=== PATIENT | male | born 1945 | race Caucasian/White ===

== ENCOUNTER → 2021-03-26 | Day surgery (SDC) | payer OTHER ==
[~2021-03-26] VITALS: Ht 177.8 cm; Wt 70.3 kg
[~2021-03-26] MED LIST: ASA81BEC PO; ATORVASTATIN CA80 MG PO; KAPSPARGO SPRIN25 MG PO; LEVO-T50 MCG PO; OXYCODONE-APAP1 EAC4 PO
[2021-03-26 08:30] VITALS: BP 109/77
--- NOTE | 2021-03-29 07:19 | O ---
[facility] [place] [address] OPERATIVE REPORT Name: BERTHA MAURO Room #: REG [facility].#: [id number] Admission: 03/26/21 Attend Phys: Roman Rodriguez MD Discharge: Date of : 49 Report #: [id number] THIS REPORT FOR: cc: FAM - Family physician unknown FAM - Family physician unknown Roman Rodriguez MD ~ DATE OF SERVICE: 03/26/2021 PREOPERATIVE DIAGNOSES: 1. Basal cell carcinoma, right medial cheek. 2. Mohs defect, right medial cheek, 4 x 4 cm. POSTOPERATIVE DIAGNOSES: 1. Basal cell carcinoma, right medial cheek. 2. Mohs defect, right medial cheek, 4 x 4 cm. PROCEDURES PERFORMED: 1. Adjacent tissue transfer, right cheek, 30-60 square cm, code 03887. 2. Full thickness skin graft to cheek, code 59127. 3. Scar release of the face, code 83133. PRIMARY SURGEON: Roman Rodriguez MD STEAM SHOVEL ENGINEER: None. ANESTHESIA: General. DRAINS: None. ESTIMATED BLOOD LOSS: Approximately 20 mL. COMPLICATIONS: None. INDICATIONS FOR PROCEDURE: The patient is a 75-year-old male with a history of cutaneous malignancy, who recently underwent Mohs micrographic excision of a right medial cheek lesion positive for basal cell carcinoma. This was cleared after several layers and this resulted in a large complex defect. Therefore, he was referred to me. In consultation with the patient, it was noted that he had a very large medial cheek defect and this would require general anesthesia at a hospital given his multiple other medical comorbidities. He was consented about benefits and risks of the procedure and we elected to proceed. DESCRIPTION OF PROCEDURE: The patient was identified in the preoperative area before being transported to the operating room and placed supine on the operating table. At this point, general endotracheal anesthesia was induced and a timeout was called to ensure patient identity and procedure to be performed. [address] [address] OPERATIVE REPORT Name: BERTHA MAURO Room #: REG [facility]..#: [id number] Admission: 03/26/21 Attend Phys: Roman Rodriguez MD Discharge: Date of : 49 Report #: [id number] Once all were in agreement, the lesion was injected locally with 1% percent lidocaine with 1:100,000 epinephrine solution including a very large amount of the cheek and neck inferior to the lesion. Once this was performed, the patient was prepped and draped in the normal sterile fashion. Starting first, the wound was sharply debrided of all scar tissue and granulation tissue that was in the way using a #15 blade and iris scissors. Once all wound edges were freshened and scar contracture was released, the wound was undermined widely medially, laterally and slightly superiorly leaving the inferior aspect not undermined. I elected to then perform a V-Y island flap based inferiorly. This measured approximately 3.2 cm wide and approximately 5.5 cm long. This was shaped in a V fashion closely approximating the natural nasolabial crease down to and near the mandibular border. This was then incised using a #15 blade scalpel through the marked lines down into the subcutaneous plane and then using a blunt Metzenbaum scissor, gentle spreading in the subcutaneous plane freed the island flap up enough to be advanced superomedially to close the majority of the defect; however, this did leave an approximately 1.5 x 2.5 cm superior oval-shaped portion of the defect, which I then elected to close using a full-thickness skin graft. The island flap was sutured in layers using 3-0 Monocryl in the deep layer followed by 5-0 plain gut suture in a running fashion to reapproximate the skin edges. I then marked out an area in the right inferior neck crease and a small full-thickness skin graft was retrieved from this area and the donor site was closed primarily with 3-0 Monocryl and 5-0 plain gut suture in a running fashion. Finally, the full thickness skin graft was defatted and thinned before being inset into the defect and sutured around its periphery using a 5-0 plain gut suture. At this point, the entire defect was closed. There were no signs of any downward pull ectropion on the lower lid. I then elected to place a bolster dressing comprised of 2-0 silk sutures, cotton balls and Xeroform dressing to apply downward pressure on to the wound bed. This was then sutured. The patient was then cleaned thoroughly and reversed from anesthesia and transported to PACU in stable condition. Please note that all instrument, sponge and needle counts were correct x2. The entire defect was 16 square cm plus the flap being approximately an additional 16 square cm, bringing the total to just above 30 square cm. DISPOSITION: The patient will be discharged home after meeting general discharge criteria. He has been given prescriptions for pain medication and antibiotics, he should be taken as directed. Wound care has been discussed with his significant other and provided to him in a written form. He will follow up with me in 10 days' time. Activity restrictions were reviewed. He may call our office with any concerns or issues. <ELECTRONICALLY SIGNED> By: Roman Rodriguez MD 03/29/21 0719 [id number] Roman Rodriguez MD /nt
== END | disposition home or self-care (01) ==
LOC: OR 07:43
PROVIDERS: ATTEND Otolaryngology
DX: C44.319 Basal cell carcinoma of skin of other parts of face (principal); M95.2 Other acquired deformity of head; L90.5 Scar conditions and fibrosis of skin; I10 Essential (primary) hypertension; I25.2 Old myocardial infarction; E78.5 Hyperlipidemia, unspecified; E03.9 Hypothyroidism, unspecified; F32.9 Major depressive disorder, single episode, unspecified; F41.9 Anxiety disorder, unspecified; Z98.890 Other specified postprocedural states; Z87.891 Personal history of nicotine dependence; Z20.822 Contact with and (suspected) exposure to COVID-19; Z79.899 Other long term (current) drug therapy; Z85.528 Personal history of other malignant neoplasm of kidney; Z85.05 Personal history of malignant neoplasm of liver; Z85.118 Personal history of other malignant neoplasm of bronchus and lung; Z98.41 Cataract extraction status, right eye; Z98.42 Cataract extraction status, left eye
CPT/HCPCS: 50010; 50101; 50386; 50403; 51412; 56524; 56526; 56527; 56528; 57006; 62110; 62900; 70005